=== PATIENT | female | born 1985 | race Caucasian/White ===

== ENCOUNTER 2024-02-03 10:35 | Emergency (ER) | payer OTHER, SELFPAY ==
--- NOTE | ~2024-02-03 | XR_ITS ---
EXAMINATION: XR clavicle LT DATE: 02/03/2024 10:58 INDICATION: Left clavicle injury. TECHNIQUE: 2 views of left clavicle were obtained. COMPARISON: None. FINDINGS: Bone alignment is normal. No fracture. Joint spaces are normal. IMPRESSION: 1. Normal left clavicle. Reviewed, dictated and finalized at location E. N REDEVELOPMENT SPECIALIST IMPRESSION: 1. Normal left clavicle.
[2024-02-03 10:44] VITALS: BP 157/107; PULSE 92; RESP 20; TEMP 37.2; O2SAT 100
--- NOTE | 2024-02-03 11:17 | ED.UPPEXIN ---
HPI - Extremity Injury (Upper) General Chief Complaint: Extremity Injury, Upper Stated Complaint: Left shoulder pain Time Seen by Provider: 02/03/24 11:11 Source: patient and RN notes reviewed Mode of arrival: ambulatory Limitations: no limitations History of Present Illness HPI narrative: Patient presents today complaining of pain to her left clavicle area after she slipped in some water on her bathroom floor and fell into the edge of the shower 2 days ago. Denies numbness or tingling in the arm or hand. She currently rates her pain at rest 3/10, which increases with movement. She has tried ice and ibuprofen without much relief. Related Data Home Medications Medication Instructions Recorded Confirmed sumatriptan succinate 50 mg tablet 50 mg PO DIRECTED 02/03/24 02/03/24 Allergies Allergy/AdvReac Type Severity Reaction Status Date / Time aminophylline Allergy Mild Verified 03/16/09 12:46 theophylline Allergy Mild Verified 03/16/09 12:46 Review of Systems Review of Systems: CONSTITUTIONAL: Denies body aches, fever, chills, or sweats. EYES: Denies visual changes, redness, or discharge. ENT: Denies rhinorrhea, congestion, sore throat, or otalgia. CARDIOVASCULAR: Denies chest pain, palpitations, or edema. RESPIRATORY: Denies cough or dyspnea. GASTROINTESTINAL: Denies abdominal pain, nausea, vomiting, or diarrhea. GENITOURINARY: Denies dysuria or hematuria. SKIN: Denies rash, itching, or wounds. MUSCULOSKELETAL: Denies back pain, or myalgia. + left clavicle pain NEUROLOGIC: Denies headache, numbness, tingling, or weakness. PSYCH: Denies depression or anxiety. PMFSH Comments At time of signature, I have reviewed and agree with nursing past medical, surgical, social and family history unless otherwise noted. Please see nursing chart for further information. There is no relevant family history pertinent to the presenting complaint Exam Narrative: GENERAL: Well-appearing, well-nourished, and in no acute distress. HEAD: Normocephalic, atraumatic. EYES: EOMI. No redness or drainage. Conjunctivae normal. ENT: Mucous membranes pink and moist. NECK: Normal AROM. CHEST: No respiratory distress. EXTREMITIES: Mild tenderness to the lateral 3rd of the left clavicle. No deformity, contusion, edema noted. Mild tenderness to the anterior left shoulder noted. No edema noted. Mild pain with P ROM of the shoulder at 90? abduction and forward flexion. Distal sensation intact. Capillary refill normal. Radial pulse normal. Hand international trade analyst equal and strong. SKIN: Warm, dry, no rash. Capillary refill normal. Normal skin turgor. NEURO: No focal deficits. Alert and oriented x3. Gait steady. PSYCH: Normal affect. No signs of depression or anxiety. Course Course Level of Care: Express Care Visit Vital Signs Vital signs: Vital Signs Temperature 98.9 F 02/03/24 10:44 Pulse Rate 92 02/03/24 10:44 Respiratory Rate 20 02/03/24 10:44 Blood Pressure 157/107 H 02/03/24 10:44 Pulse Oximetry 100 02/03/24 10:44 Oxygen Delivery Room Air 02/03/24 10:44 Temperature 98.9 F 02/03/24 10:44 Pulse Rate 92 02/03/24 10:44 Respiratory Rate 20 02/03/24 10:44 Blood Pressure 157/107 H 02/03/24 10:44 Pulse Oximetry 100 02/03/24 10:44 Oxygen Delivery Room Air 02/03/24 10:44 Reviewed MDM - Extremity Injury (Upper) MDM Narrative Medical decision making narrative: X-rays negative. Patient would like a sling for a few days. Discussed the importance of gentle range of motion to prevent stiffness of the shoulder. Recommend NSAIDs and ice with orthopedic follow-up if symptoms do not improve. Anticipatory guidance given. Differential Diagnosis Differential diagnosis: Likely fracture of clavicle and other (Clavicle contusion, shoulder strain) Imaging Data Radiologist's impression: ITS Impressions Clavicle X-Ray 02/03/24 10:59 IMPRESSION: 1. Normal left clavicle. Critic
[2024-02-03 11:27] VITALS: BP 142/101
== END 2024-02-03 11:27 | disposition home or self-care (01) ==
PROVIDERS: Emergency Provider Nurse Practitioner; PCP Nurse Practitioner Family
DX: S46.912A Strain of unspecified muscle, fascia and tendon at shoulder and upper arm level, left arm, initial encounter (principal); W01.0XXA Fall on same level from slipping, tripping and stumbling without subsequent striking against object, initial encounter
CPT/HCPCS: 73000; 99213; A4565; G0463